=== PATIENT | male | born 1995 | race Caucasian/White ===

== ENCOUNTER 2017-10-27 18:34 | Emergency (ER) | payer BC ==
[~2017-10-27] VITALS: Ht 180.3 cm; Wt 100.0 kg
[~2017-10-27 18:34] MED LIST: CELE200C PO; IBUP200C5 PO; OMEP-110 PO
[2017-10-27 18:35] VITALS: BP 165/99
[2017-10-27] MEDS ORDERED: IBUPROFEN 200 MG TABLET PO ONE (19:00)
[2017-10-27] MEDS ORDERED: IBUPROFEN 200 MG TABLET ONE (19:03)
== END 2017-10-27 19:23 | disposition home or self-care (01) ==
LOC: ED 19:17
DX: M25.572 Pain in left ankle and joints of left foot (principal)
CPT/HCPCS: 99284

== ENCOUNTER 2020-01-09 19:28 | Emergency (ER) | payer BC ==
[~2020-01-09] VITALS: Ht 175.3 cm; Wt 93.0 kg
[~2020-01-09 19:28] MED LIST changes: +IBUP-1623 PO; -IBUP200C5 PO
[2020-01-09 19:32] VITALS: BP 130/11
[2020-01-09] MEDS ORDERED: AMOXICILLIN/CLAV 875-125MG TABLET PO STA (19:39)
[2020-01-09] MEDS ORDERED: AMOXICILLIN/CLAV 875-125MG TABLET ONE (20:25)
[2020-01-09] MEDS ORDERED: HYDROcodone/APAP 5/325 TABLET PO STA (20:34)
[2020-01-09] MEDS ORDERED: NEOSPORIN OINT. PKT 1 PACKET ONE (20:36)
[2020-01-09] MEDS ORDERED: HYDROcodone/APAP 5/325 TABLET ONE (21:40)
== END 2020-01-09 22:16 | disposition home or self-care (01) ==
LOC: ED 20:25
DX: S51.851A Open bite of right forearm, initial encounter (principal); W54.0XXA Bitten by dog, initial encounter; Y93.89 Activity, other specified; Y92.009 Unspecified place in unspecified non-institutional (private) residence as the place of occurrence of the external cause; Y99.8 Other external cause status
CPT/HCPCS: 99283